=== PATIENT | male | born 1990 | race Two or more races ===

== ENCOUNTER 2024-12-18 20:58 | Emergency (ER) | payer SELFPAY ==
[2024-12-18 20:59] VITALS: BMI 20.5
--- NOTE | 2024-12-18 21:02 | EKG_ITS ---
[facility] Test Date: 2024-12-18 Pat Name: NAN MORENO Department: Room: - Gender: Male Head Of English: : 1990 Requested By: ED Temporary Provider Order Number: [id number] Reading MD: ED Temporary Provider Measurements Intervals Gerald Rate: 75 P: 17 TX: 111 QRS: 85 QRSD: 85 T: 59 QT: 363 QTc: 407 Interpretive Statements SINUS RHYTHM WITH SHORT TX INTERVAL WITH FREQUENT SUPRAVENTRICULAR PREMATURE COMPLEXES ABNORMAL RHYTHM ECG No previous ECG available for comparison /store/S0/[id number]/ecg/[id number].pdf
--- NOTE | 2024-12-18 21:05 | XR_ITS ---
Examination: PA lateral chest 2 views FINDINGS: Upright PA and lateral chest 2 views Date and time: November 17, 2024 2122 hours INDICATIONS: Chest pain shortness of breath beginning 4 days ago. FINDINGS: Normal heart size. Lungs are clear. The osseous structures are intact IMPRESSION: No active disease
[2024-12-18 21:48] VITALS: BP 137/82; PULSE 60; RESP 18; TEMP 36.7; O2SAT 97
[2024-12-18 21:59] VITALS: BP 126/99; PULSE 70; RESP 22; TEMP 36.9; O2SAT 98
[2024-12-18 22:02] LABS: Basophils # (Auto) 0.1 Thou/mm3 (0.0-0.2); Basophils % (Auto) 1 % (0-2.5); Eosinophils # (Auto) 0.2 Thou/mm3 (0.0-0.5); Eosinophils % (Auto) 3 % (0-10); Hematocrit 57.0 % (41.0-53.0); Hemoglobin 20.0 g/dL (13.5-16.0); Immature Granulocytes Auto 0.03 Thou/mm3 (0.00-0.00); Lymphocytes # (Auto) 2.4 Thou/mm3 (1.0-4.8); Lymphocytes % (Auto) 29 % (10-50); Mean Corpuscular HGB Conc 35.1 g/dl (31.0-37.0); Mean Corpuscular Hemoglobin 33.7 pg (25.0-35.0); Mean Corpuscular Volume 96 fL (80-100); Monocytes # (Auto) 0.7 Thou/mm3 (0.0-0.8); Monocytes % (Auto) 9 % (0-12); Neutrophils # (Auto) 4.8 Thou/mm3 (1.8-7.7); Neutrophils % (Auto) 58 % (37-80); Nucleated Red Blood Cell # 0.00 Thou/mm3 (0.00-0.00); Nucleated Red Blood Cell % 0 /100 WBC (0); Platelet Count 280 Thou/mm3 (140-440); RDW Standard Deviation 47.6 fL (35.1-43.9); Red Blood Count 5.94 Miln/mm3 (4.50-5.90); White Blood Count 8.3 Thou/mm3 (3.8-10.6)
[2024-12-18 22:14] LABS: Collection Type, Urine Clean Catch
[2024-12-18 22:23] LABS: B-Type Natriuretic Peptide < 20 pg/mL (0-100)
[2024-12-18 22:25] LABS: INR 1.1 (0.9-1.3); Partial Thromboplastin Time 29.9 Seconds (22.0-36.0); Prothrombin Time 12.0 Seconds (9.0-12.2)
[2024-12-18 22:32] LABS: Amorphous Crystals,Urine Present (Absent); Bacteria,Urine Rare; Bilirubin,Urine Negative (Negative); Blood,Urine Trace (Negative); Clarity,Urine Turbid (Clear/Hazy); Color,Urine Yellow (Lt Yel-Yel); Culture Indicated,Urine Not Indicated; Glucose, Urine Negative (Negative); Ketones,Urine Trace (Negative); Leukocyte Esterase,Urine Negative (Negative); Nitrite,Urine Negative (Negative); PH,Urine 6.5 (5.0-7.0); Protein,Urine Trace (Neg - Trace); RBC,Urine 5 /hpf (0-3); Specific Gravity,Urine 1.027 (1.001-1.035); Squamous Epithelial Cell,Urine < 1 /hpf (0-5); Urobilinogen,Urine Negative mg/dL (0.0-1.0); WBC,Urine 1 /hpf (0-5)
[2024-12-18 22:34] LABS: Alanine Aminotransferase 33 U/L (10-49); Albumin, Serum 5.2 gm/dL (3.5-5.0); Albumin/Globulin Ratio 1.4 (1.2-2.2); Alkaline Phosphatase 96 U/L (46-116); Anion Gap 12 (7-16); Aspartate Amino Transferase 31 U/L (0-34); BUN/Creatinine Ratio 8 Ratio (12-20); Bilirubin,Total 0.7 mg/dL (0.3-1.2); Blood Urea Nitrogen 7 mg/dL (9-23); Calcium 11.0 mg/dL (8.3-10.6); Calcium (Corrected) 11.0 mg/dL (8.5-10.1); Carbon Dioxide 27.0 mMol/L (20.0-31.0); Chloride 103 mMol/L (98-107); Creatinine (Component) 0.9 mg/dL (0.6-1.3); Estimated Creatinine Clearance 102.1 mL/min (>60); Globulin 3.6 gm/dL (2.3-3.5); Glucose 97 mg/dL (74-106); Magnesium 2.0 mg/dL (1.6-2.6); Osmolality,Calculated 281 (275-295); Potassium 4.0 mMol/L (3.4-5.1); Sodium 142 mMol/L (136-145); Total Protein 8.8 gm/dL (5.7-8.2); Troponin I < 0.020 ng/mL (0.0-0.045); eGFR > 60 See Note
--- NOTE | 2024-12-18 22:42 | EDNOTE_ITS ---
ED General RME/HPI General Chief complaint: Shortness of Breath/Dyspnea Stated complaint: TROUBLE BREATHING FOR A MONTH, CHEST PAIN 2-3 DAYS Arrival date/time: 12/18/24 20:58 RME / HPI RME / HPI narrative: 34-year-old male with no relevant past medical history other than previous opiate use and currently on Suboxone comes into the ED with chief complaints of shortness of breath for the past 2 months. Patient states that he has not had any sick contacts that he has not had any fevers at this time. Patient does state that sometimes he gets a cough, he has to clear his throat. He also mentions that he has some heartburn. Patient does smoke around 2 packs/day. Does not complain of any chest pain, burning sensation urination, headaches, or sneezing. Patient does mention that he has some diarrhea, but no blood in the bowel movement. Related Data Previous Rx's ?Medication ?Instructions ?Recorded metoclopramide HCl 5 mg tablet 5 mg PO Q8H PRN nausea and 12/18/24 vomiting 3 days #9 tabs omeprazole 20 mg capsule,delayed 20 mg PO QDAY #30 cap s 12/18/24 release Allergies Allergy/AdvReac Type Severity Reaction Status Date / Time No Known Allergies Allergy Verified 12/18/24 20:59 Review of Systems Review of Systems Systems Reviewed: All systems reviewed, normal except as documented Past Medical History Past Medical History Comments PMH COMMENT: PMH: None Admits previous opioid use currently on Suboxone, admits smoking 2 packs/day, admits social drinking Allergies: NKDA ED Exam Narrative Physical exam: Gen: A&O X 3, NAD HEENT: NCAT, EOMI, Pupils reactive JAVIER, not icteric. External ears normal. No rhinorrhea. Dry mucous membranes. Neck: Supple, full range of motion, no observable masses, No meningeal sign. Lungs: No Respiratory distress, clear bilateral. CV: RRR, no murmurs. Abdomen: Soft, nondistended, mild pain to palpation, No rebound tenderness. MSK: No joint swelling, no redness, peripheral pulses presents, lumbar with no edema. Skin: No rashes, petechiae, lesions.. Neuro: No focal neurological deficits appreciated, sensory and motor intact. Psych: Cooperative, appropriate mood and effect. Course Quality Measures none Orders Category Date Time Status Bedside COVID-19 Antigen Test NOW Care 12/18/24 21:05 Active Bedside Influenza A&B Antigen Test NOW Care 12/18/24 21:06 Completed EKG (ED ONLY) *Do not use* NOW Care 12/18/24 21:02 Completed EKG (ED Only) Stat Exams 12/18/24 21:02 Draft XR chest 2V Stat Exams 12/18/24 21:05 Completed B-Type Natriuretic Peptide Stat Lab 12/18/24 21:52 Completed CBC Stat Lab 12/18/24 21:52 Completed Comprehensive Metabolic Panel Stat Lab 12/18/24 21:52 Results Drug Screen,Urine Stat Lab 12/18/24 21:54 Received LDH (Lactate Dehydrogenase) Stat Lab 12/18/24 21:52 Results Magnesium Stat Lab 12/18/24 21:52 Results Partial Thromboplastin Time Stat Lab 12/18/24 21:52 Completed Prothrombin Time with INR Stat Lab 12/18/24 21:52 Completed Troponin I Stat Lab 12/18/24 21:52 Results UA, C/S IF [Urinalysis, C/S if Indicated] Stat Lab 12/18/24 21:54 Completed Vital Signs Vital signs: Vital Signs Temperature 98.1 F 12/18/24 21:48 Pulse Rate 60 12/18/24 21:48 Respiratory Rate 18 12/18/24 21:48 Blood Pressure 137/82 H 12/18/24 21:48 Pulse Oximetry (%) 97 12/18/24 21:48 Oxygen Delivery Method Room Air 12/18/24 21:48 Discharge Plan Plan Patient Disposition: HOME (Self Care) Prescriptions/Referrals Prescriptions/Med Rec: New omeprazole 20 mg capsule,delayed release(DR/EC) 20 mg PO QDAY Qty: 30 0RF metoclopramide HCl 5 mg tablet 5 mg PO Q8H PRN (Reason: nausea and vomiting) 3 Days Qty: 9 0RF Referrals: No Primary/Family,Physician [Primary Care Provider] - In 1 week Problem List Clinical Impression: Acid reflux Patient/Caregiver Discharge Instructions Other Activity Instructions:: Follow-up primary care physician within 5 days Prescribed Reglan q8hr as needed for nausea for 3 days and omeprazole once a day for 30 days for heartburn. Recommend outpatient follow-up for acid reflux. Recommend abstaining from smoking as this can be contributing to your acid reflux. Come back to the ED if symptoms persist or worsen. Education Materials: ED GERD (Adult) Print Language: Macedonian Stand Alone Forms: Kiana Award Info., Patient Portal Info Letter MDM Narrative MDM hospital course: Patient was seen and evaluated upon arrival by myself. Diagnostic imaging and labs were ordered. 22: 56: Labs were reviewed and show elevated hemoglobin likely do to hemoconcentration, troponins were negative, chest x-ray did not show any active disease, and COVID and flu were negative. 2305: Will discharge patient on PPI and Reglan for heartburn. Patient agrees with plan. Case disclosed with Attending Dr. Keith Loomis PGY2 Disclaimer: Even though this this note was dictated by speech recognition and even though it was carefully revised there may still be minor errors in limb driver due to voice recognition software.
[2024-12-18 23:15] LABS: Amphetamine/Methamp Scrn,U Negative (Negative); Barbiturate Screen,Urine Negative (Negative); Benzodiazepines Screen,Urine Negative (Negative); Benzoylecgonine Screen, Ur Positive (Negative); Fentanyl Screen,Urine Negative (Negative); Opiate Screen,Urine Negative (Negative); THC Screen,Urine Positive (Negative)
[2024-12-18 23:18] VITALS: BP 126/72; PULSE 72; RESP 16; TEMP 36.8; O2SAT 98
[2024-12-18 23:45] LABS: LDH (Lactate Dehydrogenase) 232 U/L (120-246)
== END 2024-12-18 23:21 | disposition home or self-care (01) ==
PROVIDERS: Emergency Provider Emergency Medicine
DX: K21.9 Gastro-esophageal reflux disease without esophagitis (principal); R07.1 Chest pain on breathing; R06.02 Shortness of breath; I49.1 Atrial premature depolarization
CPT/HCPCS: 36415; 71046; 80053; 80307; 81001; 83615; 83735; 83880; 84484; 85025; 85610; 85730; 87400; 87811; 93005; 99284